=== PATIENT | female | born 1935 | race Caucasian/White ===

== ENCOUNTER 2017-02-03 21:25 | Emergency (ER) | payer MEDICARE ==
[~2017-02-03] VITALS: Ht 149.9 cm; Wt 69.0 kg
[~2017-02-03 21:25] MED LIST: ASPI-973 PO; ATEN25TA38 PO; CHOL400T41 PO; FISH PO; LOVA20TA PO; MULT-1018 PO; NAPR220C11 PO; SOLI5TAB2 PO; ZES10 PO
[2017-02-03 21:28] VITALS: BP 134/71; PULSE 67; RESP 18; O2SAT 94
[2017-02-03 21:40] LABS: BASOPHILS % (AUTO) 0.2 % (0-3); EOSINOPHILS % (AUTO) 2.9 % (0-5); MONOCYTES % (AUTO) 8.8 % (4-12); Mean Corpuscular Hemoglobin 30.2 pg (27.0-35.0); Mean Corpuscular Volume 90.1 fL (81-100); NEUTROPHILS % (AUTO) 60.2 % (40-74); Platelet Count 251 bil/L (150-400)
[2017-02-03] MEDS ORDERED: Ondansetron 2 mg/mL 2 mL Inj IVPUSH PRN (21:45)
--- NOTE | 2017-02-03 22:07 | ED.REPORT ---
HPI-Abd Pain F 40 and Over Date of Service Feb 03, 2017 ED Provider: Dave Patterson MD Patient is a 81 year old female with a history of hypertension and GERD who presents to the ED via EMS after she developed right lower quadrant pain 5 hours prior to arrival. Patient states that the pain radiates into her back. She admits to associated nausea and diarrhea, but denies vomiting. Patient denies having pain like this previously. She denies a history of kidney stone or diverticulitis. Patient was given 4mg Zofran and 100mcg Fentanyl given by medics. Patient denies fever or chills. Nursing Notes Stated Complaint: ABDOMINAL PAIN Chief Complaint: Female Abdominal Pain Nursing Notes Reviewed: Yes Allergies: Coded Allergies: codeine (Verified Adverse Reaction, Unknown, Nausea, 02/03/17) Scheduled Aspirin (Aspirin) 81 Mg Tablet 81 MG PO DAILY Atenolol-Expunged Drug, Do Not Renew! (Atenolol-Expunged Drug, Do Not Renew!) 25 Mg Tablet 25 MG PO DAILY CHOLECALCIFEROL-Expunged Drug, Do Not Renew! (VITAMIN D-Expunged Drug, Do Not Renew!) 400 Unit Tablet 400 UNIT PO DAILY Fish Oil-Expunged Drug, Do Not Renew! (Fish Oil-Expunged Drug, Do Not Renew!) Cap 1 CAP PO DAILY Lisinopril-Expunged Drug, Do Not Renew! (Lisinopril-Expunged Drug, Do Not Renew! ) 10 Mg Tablet 10 MG PO DAILY Lovastatin (Lovastatin) 20 Mg Tablet 20 MG PO HS MULTIVITAMIN-Expunged Drug, Do Not Renew! (MULTI VITAMIN -Expunged Drug, Do Not Renew!) 1 Each Tablet 1 EACH PO DAILY Naproxen Sod-Expunged Drug, Do Not Renew!! (Aleve-Expunged Drug,Do Not Renew!) 220 Mg Capsule 220 MG PO DAILY Solifenacin Succinate (Vesicare) 5 Mg Tablet 10 MG PO DAILY General Time Seen by MD: 22:05 Chief Complaint Abdominal pain Hx Obtained From: Patient Arrived By: Ambulance Sudden in Onset?: No Onset Occurred: 5 - 8 hours ago Symptom Duration: Since onset Progression since Onset: Gradually worsening Location: : RLQ Quality: Painful Radiation: : Back Severity: Current: Moderate Severity: Maximum: Severe Associated with: Reports: Diarrhea, Nausea Recent Healthcare: No recent doctor visit, No recent hospitalization Similar Sx Previous: No Past Medical History Past Medical History dysphagia and hiatal hernia Reports: GERD, Hypertension Past Surgical History upper endoscopy Reports: Hysterectomy Reports: Back/neck surgery Smoking History Never Smoker Social History Other Social History: Good social support, , Local resident Ambulatory Status Independent Review of Systems Constitutional: Denies: Chills, Fever GI: Reports: Abdominal pain, Diarrhea, Nausea Female: Reports: Flank pain, Denies: Dysuria Complete sys rev & neg: except as marked. Physical Exam Vital Signs Vital Signs (First) Date Time Temp Pulse Resp B/P Pulse Ox O2 Delivery O2 Flow Rate FiO2 02/03/17 21:24 Room Air 02/03/17 21:28 36.4 67 18 134/71 94 Initial VS: Reviewed, Vital signs normal Head / Eyes: Atraumatic, Normocephalic, PERRL ENT: Mucous membranes moist, Conjunctiva normal, No scleral icterus Neck: Supple, Full range of motion Extremities: Vascular intact, Neuro intact, No swelling Skin: Warm, Dry, No cyanosis Neurologic: Alert, Oriented, Nonfocal Psychiatric: Mood/affect normal, Behavior normal, Normal thought content General/Constitutional: Awake, Alert, No acute distress Distress / Hydration: Positive: Distress moderate Appearance / Presentation: Positive: Uncomfortable clutching emesis bag Respiratory / Chest: Breath sounds NL, Breath sounds = bilat, No respiratory distress, No rales, No rhonchi, No wheezing Cardiovascular: Heart rate NL, Regular rhythm, Heart sounds NL, No murmurs Abdomen: Soft, Non-tender, No guarding, No rebound Back: No midline vertebral tend, No CVA tenderness Interpretation & Diagnostics Lab Results Interpretation Result Diagram: 02/03/17213502/03/[id number] Test 02/03/17 21:36 02/03/17 22:00 02/03/17 22:37 White Blood Count 9.8th/mm3 (3.8-10.1) Red Blood Count 4.44mil/mm3 (3.90-5.20) Hemoglobin 13.4g/dL (12.0-15.6) Hematocrit 40.0% (35.0-46.0) Mean Corpuscular Volume 90.1fL (81-100) Mean Corpuscular Hemoglobin 30.2pg (27.0-35.0) Mean Corpuscular Hemoglobin Concent 33.5% (32.0-37.0) Red Cell Distribution Width 13.3% (12.3-15.4) Platelet Count 251bil/L (150-400) Neutrophils (%) (Auto) 60.2% (40-74) Lymphocytes (%) (Auto) 27.8% (14-46) Monocytes (%) (Auto) 8.8% (4-12) Eosinophils (%) (Auto) 2.9% (0-5) Basophils (%) (Auto) 0.2% (0-3) Sodium Level 138mEq/L (134-144) Potassium Level 4.0mEq/L (3.5-5.2) Chloride Level 100mEq/L (97-108) Carbon Dioxide Level 21mmol/L (18-29) Blood Urea Nitrogen 17mg/dL (8-27) Creatinine 0.91mg/dL (0.57-1.00) Estimat Glomerular Filtration Rate 85mL/min (>59) Glucose Level 157mg/dL (60-99) Calcium Level 9.3mg/dL (8.5-10.1) Magnesium Level 2.0mg/dL (1.6-2.6) Total Bilirubin 0.6mg/dL (0.0-1.2) Aspartate Amino Transf (AST/SGOT) 17U/L (0-50) Alanine Aminotransferase (ALT/SGPT) 15U/L (0-32) Alkaline Phosphatase 70U/L (25-165) Total Protein 7.4g/dL (6.4-8.4) Albumin 4.2g/dL (3.4-5.0) Lipase 28U/L (13-60) Hold Antunez Top Tube Received (Received) Urine Color Bloody (YELLOW) Urine Appearance Cloudy (CLEAR,HAZY) Urine pH 7.0 (5.0-8.0) Urine Specific [place] 1.025 (1.003-1.035) Urine Protein 100mg/dL (NEG,TRACE) Urine Glucose (UA) Negativemg/dL (NEGATIVE) Urine Ketones Tracemg/dL (NEGATIVE) Urine Occult Blood Large (NEGATIVE) Urine Nitrite Negative (NEGATIVE) Urine Bilirubin Negative (NEGATIVE) Urine Urobilinogen 1.0mg/dL (NORMAL) Urine Leukocyte Esterase Negative (NEGATIVE) Urine RBC Packed/hpf (0-2) Urine WBC 0-5/hpf (0-5) Urine Epithelial Cells Occasional/hpf (NONE-MOD) Urine Crystals None seen (NONE SEEN) Urine Bacteria Few/hpf (NONE-FEW) Urine Hyaline Casts None/lpf (NONE) Urine Granular Casts None seen (NONE SEEN) Urine Waxy Casts None seen (NONE SEEN) Urine Red Blood Cell Casts None seen (NONE SEEN) Urine White Blood Cell Casts None seen (NONE SEEN) Urine Mucus Present (None Seen) Urine Trichomonas None seen (NONE SEEN) Urine Yeast None (NONE SEEN) Urinalysis Comment Urine Culture Reflexed Not indicated Lab values outside NL range: no clinical significance. CT Abd / Pelvis Interpretation CONCLUSION: 6 mm obstructing stone in the proximal right ureter with associated moderate right hydronephrosis Radiologist: Arias Killian MD 02/03/2017 - 11:14:07 PM PST Study type: Abdominal CT IV contrast Interpretation / Wet Read by: Interpret - Radiologist Re-Eval/Medical Decision Med Decision/Clinical Course 81-year-old female with right flank pain and found to have a 6 mm kidney stone in the proximal right ureter. She was given fentanyl by the paramedics with complete resolution of her pain. She was observed for over 4 hours and had no recurrent pain. She will be sent home with a urine strainer. If she develops pain she will return or follow up with her primary. Source of Hx: Old records Re-Evaluation/Progress #1: Time of Eval: 00:05 Patient Status: Condition improved Re-Evaluation/Progress Note: Informed the patient that she has a kidney stone, which is obstructive. This stone is quite large and may not pass on its own. Patient states that her pain has now resolved. She has not received any medication since she was given Fentanyl by EMS. Re-Evaluation/Progress #2: Time of Eval: 01:58 Patient Status: Condition improved Re-Evaluation/Progress Note: Patient continues to be pain free. She requests to be discharged home. Discharge instructions and follow-up discussed. All questions were addressed. Return to the ED warnings given. Counseled Regarding: Diagnosis, Lab results, Need for follow-up, When/why to return to ED Discharge & Departure Primary Impression: Right ureteral calculus Additional Impression: Hydronephrosis Hydronephrosis type: with ureteral calculous obstruction Qualified Code: N13.2 - Hydronephrosis with renal and ureteral calculous obstruction Disposition: Home Discharge Condition All VS Reviewed: Yes Condition: Stable Patient Instructions: Renal Colic (ED) Additional Instructions: You had a 6 mm stone in your right ureter. It seems that it may have passed because you are now pain-free. Drink plenty of fluids. You will have persistent blood in your urine for a day or two. Strain your urine so you can catch the stone when it comes out. Follow-up with your regular provider or return to the emergency room if you have significant worsening of your pain. Referrals: Lachelle Negrete (PCP) [place] Attestation Portions of this note were transcribed by Mara Quiroz. I, Dr. Patterson personally performed the history, physical exam and medical decision-making; I reviewed and confirmed the accuracy of the information in the transcribed note. Signed by: Yelena Seymour, 02/04/2017 0159 copies to: Lachelle Negrete Howard L MD Feb 03, 2017 22:06 Mara Quiroz Feb 03, 2017 22:12
[2017-02-03 22:47] LABS: APPEARANCE,URINE CLOUDY (CLEAR,HAZY); COLOR,URINE BLOODY (YELLOW); OCCULT BLOOD,URINE LARGE (NEGATIVE)
[2017-02-04 02:08] VITALS: BP 135/80; PULSE 77; RESP 18; O2SAT 96
--- NOTE | 2017-02-04 09:17 | DRSVH ---
PROCEDURE: CT ABDOMEN AND PELVIS WITH CONTRAST ([id number]) INDICATIONS: abd pain, LLQ TECHNIQUE: After the administration of intravenous contrast, 5 mm thick sections acquired from the diaphragm to the symphysis. 5 mm coronal and sagittal reformats were acquired. For radiation dose reduction, the following was used: automated exposure control, adjustment of mA and/or kV according to patient siz e. COMPARISON: None. FINDINGS: Image quality: Excellent. ABDOMEN: Lung bases: Lung bases are clear of acute opacities. There is a 6 mm in diameter nodule in the right lower lobe (series 3, image 5.. Heart size is normal. Solid organs: Liver and spleen are normal in size and enhancement. Diffuse fatty infiltration of john er is noted. Hepatic cysts versus hemangiomas are noted. Wedge-shaped peripheral hypodensity noted in the spleen additionally represent an area of infarction. Gallbladder is within normal limits. Bilia ry system is non dilated. Pancreas enhances normally. No adrenal nodules. There is an 8 x 6 mm ston e in the proximal right ureter causing moderate to severe right-sided hydronephrosis. No left renal s tones or hydronephrosis. Peritoneum and bowel: Bowel loops demonstrate normal wall thickness and caliber. No free fluid or a ir. The appendix is not definitely visualized. Nodes and vessels: No retroperitoneal or mesenteric adenopathy by size criteria. Aorta and inferior vena cava are normal in size. Scattered atherosclerotic calcifications are noted in the abdominal pe lvic vascular. Miscellaneous: No ventral hernias. PELVIS: Genitourinary: Bladder wall thickness is normal. Uterus is absent. Miscellaneous: No inguinal hernias or adenopathy. Multiple surgical clips noted in the pelvis. Bones: No suspicious bony lesions. No vertebral body compression fractures. IMPRESSION: 1. 8 x 6 mm proximal right ureteral stone causing moderate to severe right-sided hydronephrosis. 2. Hepatic steatosis. 3. 7 mm solid nodule in the right lower lobe. Recommend followup CT scan in 3-6 months based on crite velvet outlined below. Fleischner Society criteria for SOLID lung nodule followup. Nodule size (mm)Low-risk patientHigh-risk [id number] follow-up neededFollow-up at 12 mo; if no blake e, no further follow-up>6-0Orewxo-nm CT at 12 mo; if no change, no further follow-up needed.Initial f ollow-up CT at 6-12 mo, then 18-24 mo if no change. >6-8Initial follow-up CT at 6-12 mo, then 18-24 mo if no change. Initial follow-up CT at 3-6 mo, then 9-12 mo and 24 mo if no change. >8Follow-up CT at 3, 9, 24 mo. Or PET and/or biopsy.Same as for low-risk pts. Fleischner Society criteria for SUB-SOLID lung nodule followup. Solitary pure ground-glass nodules5 mm or lessNo followup needed. >5 mm3 mo follow-up CT to confirm persistence. Then annual CT for 3 years. Part-solid nodules3 mo follow-up CT to confirm persistence . If persistent with solid component <5 mm, annual CT for at least 3 years. If solid component is 5 mm or more, biopsy or surgical resection. Consider PET-CT for lesions > 10 mm. Multiple sub-solid nodulesPure ground glass nodules [address] at 2 and 4 years. Pure ground glass nodules >5 mm without dominant lesion. [address] to confirm persistence, then annual followup CT for at least 3 years. Dominant nodule(s) with part-solid or solid component. [address] to confirm persistence. If persistent, consider biopsy or surgical resection, marilyn if lesions have >5 m m solid component. Dictated by: Saloni Arechiga MD, PhD on 02/04/2017 at 9:10 Approved by: Saloni Arechiga MD, PhD on 02/04/2017 at 9:16
[2017-03-03] MEDS ORDERED: OMEP20CA11 PO (14:54)
[2017-03-03] MEDS ORDERED: LISI10TA PO (14:54)
[2017-03-03] MEDS ORDERED: NITR100 PO (14:54)
[2017-03-03] MEDS ORDERED: TAMS0.4C98 PO (14:54)
[2017-03-03] MEDS ORDERED: PROM12.510 PO (14:54)
[2017-03-03] MEDS ORDERED: ATEN25TA PO (14:54)
[2017-03-03] MEDS ORDERED: DONE10TA42 PO (14:54)
== END 2017-02-04 02:11 | disposition home or self-care (01) ==
LOC: SED 21:25
DX: N13.2 Hydronephrosis with renal and ureteral calculous obstruction (principal); I10 Essential (primary) hypertension; K21.9 Gastro-esophageal reflux disease without esophagitis; Z79.82 Long term (current) use of aspirin; Z88.5 Allergy status to narcotic agent
CPT/HCPCS: 36415; 74177; 80053; 81000; 83690; 83735; 85025; 96374; 99285; J2405; Q9967

== ENCOUNTER 2017-02-10 07:02 | Emergency (ER) | payer MEDICARE ==
[~2017-02-10] VITALS: Ht 149.9 cm; Wt 69.1 kg
[2017-02-10 07:05] VITALS: BP 159/83; PULSE 60; RESP 18; O2SAT 97
--- NOTE | 2017-02-10 07:20 | ED.REPORT ---
HPI-Abd Pain F 40 and Over Date of Service Feb 10, 2017 ED Provider: Anshul Goff MD The patient is an 81 year old female with history of a hiatal hernia, GERD, kidney stones, and hypertension, who presents to the emergency department complaining of right flank that began yesterday. Last night she felt shaky before going to bed. This morning she noticed "pink" urine and continued right flank pain. She describes the pain as dull. Her pain is currently resolved. She denies dysuria or increased urination frequency. She was seen in the emergency department several days ago for a kidney stone. She believes she passed the stone because her pain resolved after she was seen in the emergency department. She has not seen a urologist in the past. She is not on any blood thinners. Nursing Notes Stated Complaint: BACK PAIN Chief Complaint: Female Abdominal Pain Nursing Notes Reviewed: Yes Allergies: Coded Allergies: codeine (Verified Adverse Reaction, Unknown, Nausea, 02/03/17) Scheduled Aspirin (Aspirin) 81 Mg Tablet 81 MG PO DAILY Atenolol-Expunged Drug, Do Not Renew! (Atenolol-Expunged Drug, Do Not Renew!) 25 Mg Tablet 25 MG PO DAILY CHOLECALCIFEROL-Expunged Drug, Do Not Renew! (VITAMIN D-Expunged Drug, Do Not Renew!) 400 Unit Tablet 400 UNIT PO DAILY Fish Oil-Expunged Drug, Do Not Renew! (Fish Oil-Expunged Drug, Do Not Renew!) Cap 1 CAP PO DAILY Lisinopril-Expunged Drug, Do Not Renew! (Lisinopril-Expunged Drug, Do Not Renew! ) 10 Mg Tablet 10 MG PO DAILY Lovastatin (Lovastatin) 20 Mg Tablet 20 MG PO HS MULTIVITAMIN-Expunged Drug, Do Not Renew! (MULTI VITAMIN -Expunged Drug, Do Not Renew!) 1 Each Tablet 1 EACH PO DAILY Naproxen Sod-Expunged Drug, Do Not Renew!! (Aleve-Expunged Drug,Do Not Renew!) 220 Mg Capsule 220 MG PO DAILY Solifenacin Succinate (Vesicare) 5 Mg Tablet 10 MG PO DAILY Scheduled PRN Hydrocodone-Acetaminophen 5-325 mg (Hydrocodone-Acetaminophen 5-325 mg) 1 Each Tablet 1 TABLET PO Q4H PRN PRN For Pain General Time Seen by MD: 07:19 Chief Complaint Flank pain right Hx Obtained From: Patient, Spouse Arrived By: Walk-in Sudden in Onset?: Yes Onset Occurred: Yesterday Symptom Duration: 13 - 16 hours Progression since Onset: Resolved Location: : Flank right Quality: Dull, Painful Severity: Current: No pain currently Severity: Maximum: Moderate Associated with: Reports: Hematuria Additional Notes: +shaky Pertinent Negative: Pt denies other symptoms Recent Healthcare: No recent hospitalization, Recent doctor visit Similar Sx Previous: Yes Past Medical History Past Medical History Dysphagia and hiatal hernia Reports: GERD, Hypertension Past Surgical History Upper endoscopy Reports: Hysterectomy Reports: Back/neck surgery Family History Noncontributory Smoking History Never Smoker Social History Other Social History: Good social support, , Local resident Ambulatory Status Independent Review of Systems GI: Reports: Abdominal pain Female: Reports: Flank pain, Hematuria, Denies: Dysuria, Urinary frequency, Urinary urgency, Urination decreased, Urination increased Musculoskeletal: Reports: Back pain Complete sys rev & neg: except as marked. Neurologic: Reports: Shaking Physical Exam Vital Signs Vital Signs (First) Date Time Temp Pulse Resp B/P Pulse Ox O2 Delivery O2 Flow Rate FiO2 02/10/17 07:05 36.2 60 18 159/83 97 Initial VS: Reviewed Head / Eyes: Atraumatic, Normocephalic, PERRL ENT: Mucous membranes moist, Conjunctiva normal, No scleral icterus Neck: Supple, Non-tender, Full range of motion Lymphatic: No lymphadenopathy Extremities: Vascular intact, Neuro intact, No swelling, No tenderness Skin: Warm, Dry, No cyanosis Neurologic: Alert, Oriented, Nonfocal Psychiatric: Mood/affect normal, Behavior normal, Normal thought content General/Constitutional: Awake, Alert Respiratory / Chest: Atraumatic, Breath sounds NL, Breath sounds = bilat, No respiratory distress, No rales, No rhonchi, No wheezing, No stridor Cardiovascular: Heart rate NL, Regular rhythm, Heart sounds NL, Peripheral circulation NL Abdomen: Atraumatic, Soft, Non-tender, McBurney's non-tender, No guarding, No rebound, BS normoactive, No distention, No hernia, No palpable mass, No pulsatile mass Back: Inspection NL, Non-tender, No CVA tenderness Re-Eval/Medical Decision Med Decision/Clinical Course Patient is a generally relatively healthy 81-year-old female who presents to the emergency department with now completely resolved right flank pain radiating to groin associated with hematuria. She was just recently seen here and diagnosed with right ureteral stone and associated moderate hydronephrosis. Upon arrival she is comfortable and in no apparent distress with stable vital signs and afebrile. Reviewed CT scan from 02/04/2017 which was notable for an 8x6 mm proximal right ureteral stone with moderate to severe right sided hydronephrosis. CBC and CMP obtained on 02/03 were unremarkable and the patient had good kidney function with a BUN of 17 and creatinine of 0.91. Urine dip from today shows no signs of UTI but is positive for blood. Overall presentation consistent with ureteral colic in setting of known kidney stone. Pain has now completely resolved and she reports that she would like to go home. I reviewed her previous workup including CT scan and labs as documented above. Abdominal examination is completely benign. She has no signs of urinary tract infection and is nontoxic in appearance. I feel that she is appropriate for discharge and further outpatient management. Given the intermittent and now completely resolved nature of her pain I suspect that she is passing her stone. While she did have some associated hydronephrosis when previously evaluated for kidney function was good. I see no immediate indication to obtain repeat laboratory studies. I do not feel that repeat imaging will immediately change our management. She was provided with a limited supply of [place] and discharged in good condition. Patient has been referred to urology. Follow-up and return precautions were reviewed in detail and the patient was discharged in good condition. Source of Hx: Old records, Family Re-Evaluation/Progress : Time of Eval: 07:33 Re-Evaluation/Progress Note: Discussed plan for urine dip and discharge. All questions were addressed. Counseled Regarding: Diagnosis, Lab results, Need for follow-up, When/why to return to ED Discharge & Departure Primary Impression: Right flank pain Additional Impressions: Kidney stone Hematuria Disposition: Home Discharge Condition All VS Reviewed: Yes Condition: Stable Patient Instructions: Renal Colic (ED) Additional Instructions: Thank you for seeking care at the emergency room. It is difficult for us to make definitive diagnoses in the ED but we believe that you are experiencing pain related to a kidney stone Our primary goal today in the ED was to evaluate you for any life-threatening conditions. Your evaluation was reassuring. You will be discharged with a prescription for [place]. You should follow-up with a urologist. We have given you a referral to Dr. Damon You should return to the ED immediately if you develop increased pain, fevers, vomiting, lightheadedness, weakness or any other concerning signs or symptoms. Thank you for letting us partake in your care today. Referrals: Lachelle Negrete (PCP) Beba Damon MD Attestation Portions of this note were transcribed by Deena Graff. I, Dr. Goff personally performed the history, physical exam and medical decision-making; I reviewed and confirmed the accuracy of the information in the transcribed note. Signed by: Yelena Brown, 02/10/2017 at 0749. copies to: Lachelle Negrete; Beba Damon MD, Beck O MD Feb 10, 2017 07:20 Deena Graff Feb 10, 2017 07:23
[2017-02-10] MEDS ORDERED: 0.9% Sodium Chloride 1,000 ML IV ONE (07:21)
[2017-02-10] MEDS ORDERED: Ondansetron 2 mg/mL 2 mL Inj IVPUSH PRN (07:25)
[2017-02-10] MEDS ORDERED: HYDR-4003 PO (07:33)
[2017-02-10 09:22] LABS: APPEARANCE,URINE HAZY (CLEAR,HAZY); COLOR,URINE STRAW (YELLOW); OCCULT BLOOD,URINE LARGE (NEGATIVE); UROBILINOGEN,URINE NORMAL (NORMAL)
[2017-03-03] MEDS ORDERED: ATEN25TA PO (14:54)
[2017-03-03] MEDS ORDERED: NITR100 PO (14:54)
[2017-03-03] MEDS ORDERED: LISI10TA PO (14:54)
[2017-03-03] MEDS ORDERED: OMEP20CA11 PO (14:54)
[2017-03-03] MEDS ORDERED: PROM12.510 PO (14:54)
[2017-03-03] MEDS ORDERED: TAMS0.4C98 PO (14:54)
[2017-03-03] MEDS ORDERED: DONE10TA42 PO (14:54)
== END 2017-02-10 07:45 | disposition home or self-care (01) ==
LOC: SED 07:02
DX: N20.0 Calculus of kidney (principal); K21.9 Gastro-esophageal reflux disease without esophagitis; I10 Essential (primary) hypertension; Z79.82 Long term (current) use of aspirin; Z88.5 Allergy status to narcotic agent

== ENCOUNTER 2017-03-04 09:12 | Day surgery (SDC) | payer MEDICARE ==
[2017-03-04] VITALS (11 sets, daily range): BP systolic 137–173; BP diastolic 65–78; PULSE 55–62; RESP 10–16; O2SAT 95–100
[~2017-03-04] VITALS: Ht 149.9 cm; Wt 68.4 kg
--- NOTE | 2017-03-04 07:22 | PCM.HPANE ---
Patient Data Surgeon Admitting Provider: Attending Provider:Saloni Santoro MD Primary Care Physician:Lachelle Negrete Other Provider:LudmilaocJenniferPotter Anesthesia Reason for Visit Right Kidney Stone, Right Ureteral Stone Ht/WT & BMI Height (Feet): 4 Height (Inches): 9 Weight (Kilograms): 69.85 Body Mass Index 33.00 Allergies Coded Allergies: codeine (Verified Adverse Reaction, Severe, Nausea, 03/03/17) Past Anesthesia History Anesthesia History: Denies:: Abnormal Airway, Anesthesia Reactions, Difficult Intubation, Fam Anesthesia Reaction, Fam Malignant Hypertherm, Malignant Hyperthermia Diabetes History Hx Diabetes?: No MRSA MRSA: No Medications Blood Thinner: Aspirin Last Dose Blood Thinner: Feb 18, 2017 Home Meds Incl Beta Kaitlin: Yes (ATENOLOL) Active Scripts Hydrocodone-Acetaminophen 5-325 mg 1 Each Tablet1 Tablet PO Q4H PRN For Pain # 14 TABLET Prov:Anshul Goff MD 02/10/17 Reported Medications Tamsulosin (Flomax)0.4 Mg Capsule0.4 Mg PO DAILY Ref 0 03/03/17 Promethazine 12.5 Mg Wfkxhj92.5 Mg PO Q4H PRN PRN 03/03/17 Omeprazole 20 Mg Capsule.dr20 Mg PO DAILY Ref 0 03/03/17 Donepezil 10 Mg Tkepea17 Mg PO HS Ref 0 03/03/17 Lisinopril 10 Mg Ipndwn69 Mg PO DAILY 30 Days Ref 0 03/03/17 Atenolol 25 Mg Dkrksj83 Mg PO DAILY #30 TABLET Ref 0 03/03/17 Aspirin 81 Mg Feacrq47 Mg PO DAILY Ref 0 07/25/16 Lovastatin 20 Mg Ajibsp81 Mg PO HS #30 TABLET Ref 0 07/24/16 Discontinued Reported Medications Nitrofurantoin Monohyd/M-Cryst (MacroBid)100 Mg Eqfbfmo490 Mg PO BID Ref 0 03/03/17 Solifenacin Succinate (Vesicare)5 Mg Nmnayp29 Mg PO DAILY #60 TABLET 07/24/16 Naproxen Sod-Expunged Drug, Do Not Renew!! (Aleve-Expunged Drug,Do Not Renew!) 220 Mg Ylyfmdl843 Mg PO DAILY 09/15/13 CHOLECALCIFEROL-Expunged Drug, Do Not Renew! (VITAMIN D-Expunged Drug, Do Not Renew!)400 Unit Knjgil923 Unit PO DAILY 09/15/13 Fish Oil-Expunged Drug, Do Not Renew! Cap1 Cap PO DAILY 09/15/13 MULTIVITAMIN-Expunged Drug, Do Not Renew! (MULTI VITAMIN -Expunged Drug, Do Not Renew!)1 Each Tablet1 Each PO DAILY 09/15/13 Atenolol-Expunged Drug, Do Not Renew! 25 Mg Fpqukj17 Mg PO DAILY 09/15/13 Lisinopril-Expunged Drug, Do Not Renew! 10 Mg Uwgsne39 Mg PO DAILY #30 TAB 09/15/13 History HEENT History: Positive for:: Dysphagia Hearing Problem ([place] SLIGHT) Denies:: Abnormal Airway Difficult Intubation Hx of Heart Problems?: Yes Cardiovascular History: Positive for:: Cardiac Surgery (S/P HEART CATH 2001 WNL) Hypertension (HYPERLIPIDEMIA) Denies:: AICD Atrial Fibrillation Chest Pain Pacemaker Valvular Heart Disease Hx of Respiratory Problem?: Yes Respiratory History: Positive for:: Pneumonia (1992) Denies:: Asthma COPD Cough Hemoptysis Tuberculosis Use of C-PAP Machine Hx Neurologic Problems?: No Neurological History: Denies:: CVA Dementia Gastrointestinal History: Positive for:: Gastroesphageal Reflux Hiatal Hernia Denies:: Cirrhosis Diverticulitis Rectal Bleeding Hx of Problems?: Yes Genitourinary History: Positive for:: Kidney Stones (RT KIDNEY STONE/RT URETERAL STONE=CURRENT PROBLEM) Female Hx: Denies:: Currently Skin History: Denies:: History Skin Disorders? Pressure Ulcers Hx Musculoskeletal Problems?: Yes Musculoskeletal History: Denies:: Back Injury (C/OF BACK PAIN-POSS R/T KIDNEY STONE) Joint Replacement Hx of Psycho/Social Problems?: No Psycho Social History: Denies:: Anxiety Hx Depression Hx Surgeries?: Yes (back surgery in nov; hysterectomy) Hx Any Other Health Problems?: Yes Other History: Denies:: Cancer Endocrine Disease Hospitalization Thyroid Disease Hx Diabetes: No Hx Alcohol Use: No Smoking Status: Never Smoker Have You Smoked inLast 12 mo: No Stop/Bang S-Snoring: Do You Snore Loudly: No T-Tired: feel tired, fatigued: No O-Obsered: Observed not breath: No P-Blood Pressure: treated: Yes B- Body Mass Index > 35 kg/m2: No A- Age over 50: Yes N- Neck Large Circumference: No G- Gender Male: No TREE Total Score: 2 Risk Assessment Category Category 1A: Patient has history of documented sleep apnea, and HAS NOT received any narcotic, sedative or anesthesia administration during this stay. Category 1B: Patient has history of documented sleep apnea, and HAS received any narcotic , sedative or anesthesia administration during this stay Category 2: Patient has SUSPECTED Obstructive Sleep Apnea, and HAS received any narcotic , sedative or anesthesia administration during this stay. Category 3: Patient has SUSPECTED Obstructive Sleep Apnea and HAS NOT received narcotic, sedative or anesthesia administration during this stay. Category 4: Outpatient in Procedural Areas with known sleep apnea or who screen positive for High Risk via the STOP/BANG questionnaire. Exam Exam General Appearance: Alert, Oriented X3, Cooperative, No Acute Distress HEENT/AIRWAY: MP 1 Lungs: Normal Air Movement Heart: Regular Rate/Rhythm Plan Impression Patient chart reviewed, patient interviewed and anesthestic plan with risks, benefits, and alternatives discussed, and informed consent obtained. ASA Physical Status: ASA3 Severe Disease Anesthetic Plan: GA Bene/Risks/Altern/Consents: Yes HP Complete Prior to Induction: Yes Eun Lopez DO Mar 04, 2017 07:21
[~2017-03-04 09:12] MED LIST changes: +ATEN25TA PO; -ATEN25TA38 PO; -CHOL400T41 PO; +CeFAZolin Inj 2 GM in IV Premix 1 EACH IV ONE; +DONE10TA42 PO; -FISH PO; +HYDR-4003 PO; +LISI10TA PO; -MULT-1018 PO; -NAPR220C11 PO; +NITR100 PO; +OMEP20CA11 PO; +PROM12.510 PO; -SOLI5TAB2 PO; +TAMS0.4C98 PO; -ZES10 PO
[2017-03-04] MEDS ORDERED: Dexamethasone 4 mg/mL Inj ONE (09:13)
[2017-03-04] MEDS ORDERED: EPHEDrine/NS 5 mg/mL 5 mL Syringe ONE (09:13)
[2017-03-04] MEDS ORDERED: fentaNYL-PF 50 mCg/mL 2 mL Inj ONE (09:13)
[2017-03-04] MEDS ORDERED: Ondansetron 2 mg/mL 2 mL Inj ONE (09:13)
[2017-03-04] MEDS ORDERED: Propofol 10,000 mCg/mL 20 mL Inj ONE (09:13)
[2017-03-04] MEDS: Lactated Ringer's 1,000 ML IV SCH ×2 (09:48→10:38)
[2017-03-04] MEDS ORDERED: Belladonna Alk-Opium 60 mg Rectal Suppository RECTAL ONE ×2 (10:49→11:04)
[2017-03-04] MEDS ORDERED: Lactated Ringer's 1,000 ML IV SCH (10:52)
[2017-03-04] MEDS ORDERED: Lactated Ringer's 500 ML IV PRN (10:52)
[2017-03-04] MEDS ORDERED: EPHEDrine Sulfate 50 mg/mL Inj IVPUSH PRN (10:55)
[2017-03-04] MEDS ORDERED: MetoCLOpramide 5 mg/mL 2 mL Inj IVPUSH PRN (10:55)
[2017-03-04] MEDS ORDERED: Ondansetron 2 mg/mL 2 mL Inj IVPUSH PRN (10:55)
[2017-03-04] MEDS ORDERED: Phenylephrine 10,000 mCg/mL Inj IVPUSH PRN (10:55)
[2017-03-04] MEDS ORDERED: fentaNYL-PF 50 mCg/mL 2 mL Inj IVPUSH PRN (10:55)
[2017-03-04] MEDS ORDERED: HYDROmorphone 1 mg/mL Inj IVPUSH PRN (10:55)
[2017-03-04] MEDS ORDERED: HYDROcodone-APAP 5-325 mg Tablet PO PRN (11:25)
--- NOTE | 2017-03-04 12:07 | PCM.ANEP1 ---
Post Anesthesia Phase 1 PACU Phase 1 Assessment Vital Signs Vital Signs Date Time Temp Pulse Resp B/P Pulse Ox O2 Delivery O2 Flow Rate FiO2 03/04/17 12:00 36.2 56 15 173/70 100 Simple Mask 10 03/04/17 11:55 57 15 166/72 100 Simple Mask 10 03/04/17 11:50 56 14 158/73 100 Simple Mask 10 03/04/17 11:46 57 13 160/72 99 Simple Mask 10 03/04/17 11:42 57 15 157/69 99 Simple Mask 10 03/04/17 11:36 59 14 148/69 99 Simple Mask 10 03/04/17 11:30 60 10 141/67 99 Simple Mask 10 03/04/17 11:26 36.8 59 137/65 99 Simple Mask 10 03/04/17 10:00 36.3 58 16 173/78 98 Room Air Anesthetic Administered: GA Level of Alertness: Sleeping, hard to arouse SILVEIRA's with Equal Strength: Yes Pain: No Nausea or Vomiting: No Airway Device: Oralpharangeal Airway Oxygen Delivery: Simple Mask Lungs: Normal Air Movement Eun Lopez DO Mar 04, 2017 12:07
--- NOTE | 2017-03-04 12:08 | PCM.ANEP2 ---
Post Anesthesia Evaluation ASA/CMS Post Anesthesia VS in Patient's Normal Range?: Yes Resp Stable; Airway Patent?: Yes CV Function & Hydration Stable: Yes Mental Status Recovered?: Yes Pain control Satisfactory?: Yes N/V Control Satisfactory?: Yes Eun Lopez DO Mar 04, 2017 12:08
--- NOTE | 2017-03-04 12:15 | DRSVH ---
PROCEDURE: X-RAY RETROGRADE UROGRAPHY INDICATIONS: RIGHT CYSTO AND STENT PLACEMENT TECHNIQUE: Single intra-operative images acquired by the Urology service. COMPARISON: None. FINDINGS: Proximal portion of a right ureteral stent is visualized Dictated by: Chase [place] M.D. on 03/04/2017 at 12:13 Approved by: Chase Lake M.D. on 03/04/2017 at 12:14
--- NOTE | 2017-03-04 20:35 | OP ---
[address] [address] OPERATIVE REPORT PATIENT: KYRA CHANG : 1935 MR#: [id number] ADMIT: 03/04/2017 JOB ID: [id number] DATE OF SURGERY: 03/04/2017 SURGEON: Saloni Santoro MD PREOPERATIVE DIAGNOSIS(ES): Right ureteral calculus. POSTOPERATIVE DIAGNOSIS(ES): Right ureteral calculus. PROCEDURES: 1. Cystoscopy. 2. Ureteroscopy. 3. Laser lithotripsy. 4. Stone basketing. 5. Insertion of stent. ANESTHESIA: General anesthetic, Dr. Lopez. DESCRIPTION OF PROCEDURE: Under general anesthetic, the patient was placed in lithotomy position. Genitalia prepped and draped in a sterile manner. An 0.035 Glidewire was advanced to the level of the right renal pelvis. A 15-[place] balloon dilation catheter was used to dilate the distal ureter. A 77-[place] semi-rigid ureteroscope was then advanced into the ureter at the level of the iliac vessels. The stone was encountered. A 360 micron laser fiber with a holmium laser was used to fragment the stone. A nitinol tipless basket was used to basket out all fragments. After ensuring all fragments were cleared, a 6-[place], 22 cm stent was passed over the wire. When it was confirmed to be in good position, the wire was withdrawn. The patient tolerated the procedure well and left the operating room in good condition. A B and O suppository was given for postoperative analgesia.
[2017-03-11 15:08] LABS: Stone Color Brown (.)
== END 2017-03-04 23:59 | disposition home or self-care (01) ==
LOC: SAS 09:12
PROVIDERS: ATTEND Urology
PROC: 0T768DZ Dilation of Right Ureter with Intraluminal Device, Via Natural or Artificial Opening Endoscopic (ICD-10-PCS; 2017-03-04)
PROC: 0TF68ZZ Fragmentation in Right Ureter, Via Natural or Artificial Opening Endoscopic (ICD-10-PCS; principal; 2017-03-04 11:15)
DX: N20.1 Calculus of ureter (principal); I10 Essential (primary) hypertension; K21.9 Gastro-esophageal reflux disease without esophagitis
CPT/HCPCS: 52356; 74420; 82360; C2617; J0690; J1100; J2405; J3010; J7120; Q9967